=== PATIENT | male | born 1955 | race African-American/Black ===

== ENCOUNTER → 2018-09-28 | Outpatient (CLI) | payer OTHER ==
--- NOTE | 2018-09-28 15:57 | RAD ---
2 view study of the right knee Clinical indications: Right knee pain and swelling. FINDINGS: No acute fracture or dislocation or osteolytic process is evident. There is mild degenerative spurring of the patellofemoral joint compartment. No significant swelling of the suprapatellar bursa is seen to indicate a joint effusion radiographically. IMPRESSION: No acute fracture. Electronically signed by: Jose Franklin MD (09/28/2018 3:54 PM) [id number]
== END | disposition home or self-care (01) ==
LOC: RAD 09:40
PROVIDERS: ATTEND General Practice
DX: Z02.71 Encounter for disability determination (principal); M25.461 Effusion, right knee; M76.891 Other specified enthesopathies of right lower limb, excluding foot
CPT/HCPCS: 73560